=== PATIENT | female | born 1950 ===

== ENCOUNTER 2019-11-30 12:50 | Emergency (ER) | payer SELFPAY ==
[2019-11-30] MEDS ORDERED: Fluorescein Opthalmic Strip ONE (13:16)
[2019-11-30] MEDS ORDERED: Proparacaine 0.5% Opth 15 ML BOT ONE (13:16)
== END 2019-11-30 13:37 | disposition home or self-care (01) ==
LOC: ERS 12:50
DX: H10.9 Unspecified conjunctivitis (principal); E03.9 Hypothyroidism, unspecified; Z87.891 Personal history of nicotine dependence
CPT/HCPCS: 99283